=== PATIENT | male | born 1950 | race Caucasian/White ===

== ENCOUNTER 2016-08-07 12:37 | Emergency (ER) | payer OTHER ==
[2016-08-07 12:49] VITALS: RESP 16; TEMP 97.5; O2SAT 97
[2016-08-07] MEDS ORDERED: TDAP ADULT 0.5 ML INJ (BOOSTRIX) IM ONE (14:04)
--- NOTE | 2016-08-07 14:14 | EDPHY ---
H & P Time Seen by Provider: 08/07/16 13:57 HPI/ROS: CHIEF COMPLAINT: Head laceration HISTORY OF PRESENT ILLNESS: This is a 66-year-old patient presenting to the ER with a head laceration. Patient states he was at the theater helping put a platform wall when a 2 x 4 platform fell him in the head he was able to catch the majority of the platform but the corner caught the top of his head. No LOC , no blurred vision, no dizziness, no headache. Denies any complaints REVIEW OF SYSTEMS: Constitutional: No fever, no chills. Eyes: No blurred vision ENT: No sore throat. Cardiovascular: No chest pain, no palpitations. Respiratory: No cough, no shortness of breath. Gastrointestinal: no vomiting. Musculoskeletal: No neck pain. No back pain. Skin: No rashes. laceration to the top of his head Neurological: No headache. No LOC Smoking Status: Never smoked Physical Exam: General Appearance: Alert and no distress. HEENT: 4.5 cm laceration noted to the top of head, bleeding controlled. PERRLA. no injection. Neurological: No focal deficits. Ambulatory without gait disturbance Respiratory: Chest is nontender, nonlabored respiratory effort Cardiac: regular rate and rhythm Musculoskeletal: Cervical vertebral spine nontender on palpation. Full range of motion Extremities: full range of motion and are nontender. Skin: No rashes or lesions. Constitutional: Initial Vital Signs Temperature (C) 36.4 C 08/07/16 12:46 Heart Rate 64 08/07/16 12:46 Respiratory Rate 16 08/07/16 12:46 Blood Pressure 102/85 H 08/07/16 12:46 O2 Sat (%) 97 08/07/16 12:46 O2 Delivery Mode Room Air Allergies/Adverse Reactions: No Known Drug Allergies Allergy (Verified 08/07/16 12:45) Home Medications: Medication Instructions Recorded NK [No Known Home Meds] 08/07/16 Medical Decision Making Procedures: Procedure: Laceration repair. Verbal consent was obtained from the patient. 4.5cm laceration on the top of head scalp. 3 mL 0.5 bupivacaine with epinephrine local infiltrate. The wound was irrigated. There were no deep structures involved, no foreign body The wound was repaired using 8 geetha. The procedure was performed by myself. A dressing was applied by our EMT. ED Course/Re-evaluation: Discussed the plan of care: Tetanus, wound irrigation, laceration repair 1440: Laceration repair with geetha. Discussed discharge instructions. Discharge home---> stable Differential Diagnosis: Other differential diagnosis considered but not limited to concussion, AMS, and foreign body - Data Points Medications Given: Discontinued Medications Diphtheria/Tetanus/Acell Pertussis (Boostrix) 0.5 ml IM .ONCE ONE Stop: 08/07/16 14:05 Last Admin: 08/07/16 14:11 Dose: 0.5 ml Departure - Departure Disposition: Home, Routine, Self-Care Clinical Impression: Laceration of head Qualifiers: Encounter type: initial encounter Location of open wound of head: scalp Foreign body presence: without foreign body Qualified Code(s): S01.01XA - Laceration without foreign body of scalp, initial encounter Condition: Good Instructions: Laceration (ED), Staple Care (ED) Additional Instructions: Discussed discharge instructions 1. Have geetha removed in 10 days 2. Keep wound clean and dry. Monitor for any signs of infection: Redness, drainage. Or any changes in vision or unresolved headache return to the emergency department 3. You can take Tylenol as needed for any headaches 4. Ice pack 15 minutes to area several times a day as needed for swelling Referrals: CHARMAINE RICHARDS [Primary Care Provider] - As per Instructions
[2016-08-07 14:59] VITALS: BP 124/81; PULSE 75
== END 2016-08-07 14:59 | disposition home or self-care (01) ==
PROC: 0HQ0XZZ Repair Scalp Skin, External Approach (ICD-10-PCS; principal; 2016-08-07)
DX: S01.01XA Laceration without foreign body of scalp, initial encounter (principal); Z23 Encounter for immunization; W20.8XXA Other cause of strike by thrown, projected or falling object, initial encounter; Y92.254 Theater (live) as the place of occurrence of the external cause